=== PATIENT | female | born 1965 | race African-American/Black ===

== ENCOUNTER 2023-09-28 06:30 | Day surgery (SDC) | payer BC ==
[2023-09-22 09:47] VITALS: BMI 48.6
[2023-09-28] MEDS ORDERED: LIDOCAINE 1%/EPI 1:100000 (20 ML MULTI DOSE VIAL) ONE (07:23)
[2023-09-28] MEDS ORDERED: ROPIVACAINE HCL 0.5% 30ML VIAL ONE (07:23)
[2023-09-28] MEDS ORDERED: LIDOCAINE HCL 1%, 10 MG/ML (20ML VIAL) ONE (07:29)
[2023-09-28] MEDS ORDERED: EPINEPHrine 1:1,000 1,000 MCG/ML ML ONE (07:33)
[2023-09-28] MEDS ORDERED: PROPOFOL 40 ML ONE (07:44)
[2023-09-28] MEDS ORDERED: SUCCINYLCHOLINE CHLORIDE 200 MG/10 ML SYRINGE ONE (07:44)
[2023-09-28] MEDS ORDERED: PROPOFOL 20 ML ONE (08:04)
[2023-09-28] MEDS ORDERED: METOCLOPRAMIDE HCL INJECTION 10 MG/2 ML VIAL ONE (08:24)
[2023-09-28] MEDS ORDERED: DEXAMETHASONE SOD PHOSPHATE 4 MG/1 ML VIAL ONE (08:24)
[2023-09-28] MEDS ORDERED: ONDANSETRON 4 MG/2 ML VIAL ONE (08:24)
[2023-09-28] MEDS ORDERED: LIDOCAINE HCL/PF 2% SDV 5ML VIAL ONE (08:24)
[2023-09-28] MEDS ORDERED: KETOROLAC TROMETHAMINE 30 MG/1 ML VIAL ONE (08:24)
[2023-09-28] MEDS ORDERED: ceFAZolin SODIUM 1 GM VIAL ONE (08:24)
[2023-09-28] MEDS ORDERED: FENTANYL CITRATE/PF 50 MCG/ML VIAL ONE ×4 (09:05→09:43)
[2023-09-28] MEDS ORDERED: ACETAMINOPHEN INJECTION 100 ML IVPB ONE (09:05)
[2023-09-28] MEDS ORDERED: PROMETHAZINE HCL 25 MG/1 ML VIAL IVPB PRN (09:07)
[2023-09-28] MEDS ORDERED: oxyCODONE HCL 5 MG TABLET PO PRN ×2 (09:07)
[2023-09-28] MEDS: ACETAMINOPHEN 1000 MG/100 ML BAG IVPB ONE (09:08)
[2023-09-28] MEDS ORDERED: LACTATED RINGERS SOLUTION 1,000 ML IV SCH (09:15)
[2023-09-28] MEDS: ONDANSETRON 4 MG/2 ML VIAL ONE (09:45)
[2023-09-28] MEDS: oxyCODONE HCL 5 MG TABLET ONE (11:27)
[2023-09-28 11:41] VITALS: RESP 16; TEMP 96.9
[2023-09-28 13:08] VITALS: BP 145/80; PULSE 62
== END 2023-09-28 13:25 | disposition home or self-care (01) ==
LOC: FASU 06:30
PROVIDERS: ATTEND Student in an Organized Health Care Education/Training Program
PROC: 0SBC4ZZ Excision of Right Knee Joint, Percutaneous Endoscopic Approach (ICD-10-PCS; principal; 2023-09-28 08:21)
DX: S83.281A Other tear of lateral meniscus, current injury, right knee, initial encounter (principal)
CPT/HCPCS: 81025; 94760; J0131